=== PATIENT | female | born 1985 | race Caucasian/White ===

== ENCOUNTER 2021-07-19 15:39 | Emergency (ER) | payer OTHER ==
[~2021-07-19] VITALS: Ht 182.9 cm; Wt 124.7 kg
[2021-07-19 17:39] LABS: HEMOGLOBIN 10.6 gm/dl (12.3-15.3); RED BLOOD COUNT 5.56 M/UL (4.00-5.10); WHITE BLOOD COUNT 16.3 K/UL (4.5-11.0)
[2021-07-19 17:58] LABS: BUN/CREATININE RATIO 20 (0-10)
[2021-07-19] MEDS ORDERED: PROAIR HFA8.5 GM INH (18:55)
== END 2021-07-19 22:20 | disposition home or self-care (01) ==
LOC: ER1 15:39
PROVIDERS: Physician Assistant
DX: Z23 Encounter for immunization (principal); U07.1 COVID-19; J12.82 Pneumonia due to coronavirus disease 2019; J45.909 Unspecified asthma, uncomplicated; I10 Essential (primary) hypertension; F17.200 Nicotine dependence, unspecified, uncomplicated; Z88.1 Allergy status to other antibiotic agents
CPT/HCPCS: 71045; 80053; 82550; 82553; 83874; 84484; 85025; 85379; 93005; 94664; 94760; 96374; 99285; J1885; M0243